=== PATIENT | female | born 1960 | race Two or more races ===

== ENCOUNTER 2019-10-04 08:41 | Emergency (ER) | payer MEDICARE, OTHER ==
[~2019-10-04] VITALS: Ht 162.6 cm; Wt 83.8 kg
[2019-10-04] MEDS ORDERED: SIMV20TA3 PO (09:31)
[2019-10-04] MEDS ORDERED: LEVO100T PO (09:31)
[2019-10-04] MEDS ORDERED: LOSA50TA14 PO (09:31)
--- NOTE | 2019-10-04 09:31 | NUR ---
MED REC COMPLETED.
[2019-10-04] MEDS ORDERED: LORazepam 2 MG/ML, 1ML IVPush ONE (10:00)
[2019-10-04] MEDS ORDERED: KETOROLAC 30 MG/1 ML IVPush ONE (10:00)
[2019-10-04] MEDS ORDERED: SODIUM CHLORIDE FLUSH 10ML SYR IVF ONE (10:00)
[2019-10-04 10:10] LABS: BASOPHILS # (AUTO) 0.02 x10^3/uL (0-0.1); BASOPHILS % (AUTO) 0 % (0-1); EOSINOPHILS # (AUTO) 0.05 x10^3/uL (0-0.4); EOSINOPHILS % (AUTO) 1 % (1-7); LYMPHOCYTES # (AUTO) 1.47 x10^3/uL (1-3.4); LYMPHOCYTES % (AUTO) 30 % (22-44); MD NO; MEAN CORPUSCULAR VOLUME 93.8 fL (80-100); MEAN PLATELET VOLUME 7.4 fL (7.4-10.4); MONOCYTES # (AUTO) 0.42 x10^3/uL (0.2-0.8); MONOCYTES % (AUTO) 9 % (2-9); NEUTROPHILS # (AUTO) 3.03 x10^3/uL (1.8-6.8); NEUTROPHILS % (AUTO) 61 % (42-75); PLATELET COUNT 264 x10^3/uL (130-400); RED BLOOD COUNT 4.71 x10^6/uL (3.82-5.3); RED CELL DISTRIBUTION WIDTH 14.2 % (9.6-15.2)
[2019-10-04 10:17] LABS: ALANINE AMINOTRANSFERASE 46 U/L (12-78); ALBUMIN 3.5 g/dL (3.4-5.0); ANION GAP 3 mmol/L (5-15); CALCIUM 8.6 mg/dL (8.5-10.1); CHLORIDE 111 mmol/L (98-107); CREATININE 0.62 mg/dL (0.55-1.02)
[2019-10-04 10:21] LABS: ALKALINE PHOSPHATASE 130 U/L (45-117); BILIRUBIN,TOTAL 0.4 mg/dL (0.2-1.0); TOTAL PROTEIN 7.2 g/dL (6.4-8.2); TROPONIN I < 0.015 ng/mL (0.000-0.045)
[2019-10-04] MEDS ORDERED: KETOROLAC 30 MG/1 ML ONE (10:23)
[2019-10-04] MEDS ORDERED: LORazepam 2 MG/ML, 1ML ONE (10:24)
--- NOTE | 2019-10-04 10:27 | NUR ---
PT MEDICATED PER MAR.
--- NOTE | 2019-10-04 10:43 | NUR ---
PT HERE WITH C/O BACK PAIN/SPASM. PT STATES SHE HAS BEEN EXPERIENCING BACK PAIN X 6 MONTHS AND RECENTLY IT GOT WORSE OVER PAST WEEK. PT STATES SHE WAS SEEN AT [place] IN FOR SAME THING. PT AAO X 4, ROOM AIR, CALL LIGHT WITHIN REACH, AT BEDSIDE. PT STATES LEFT SHOULDER PAIN THAT RADIATES TO FRONT OF LEFT CHEST AND ACROSS TO RIGHT BACK. PT CURRENTLY HAS "BIOFREEZE PATCH" IN PLACE.
--- NOTE | 2019-10-04 10:57 | NUR ---
CT WAITING FOR 20GA IV
--- NOTE | 2019-10-04 11:01 | NUR ---
NEW PIV ESTABLISHED BY THIS RN. CT NOTIFIED.
--- NOTE | 2019-10-04 11:08 | NUR ---
PT TO CT.
--- NOTE | 2019-10-04 11:25 | NUR ---
PT BACK FROM CT.
[2019-10-04] MEDS ORDERED: OMNIPAQUE 350 MG/ML, 100ML BOTTLE ONE (11:26)
[2019-10-04 11:54] VITALS: BP 159/87
--- NOTE | 2019-10-04 11:54 | NUR ---
ALL RESULTS BACK AT THIS TIME, CHART UP FOR RECHECK.
--- NOTE | 2019-10-04 13:05 | NUR ---
Patient/Caregiver given discharge instructions and they have confirmed that they understand the instructions. Patient ambulatory with steady gait. PIV REMOVED TIP INTACT.
== END 2019-10-04 13:13 | disposition home or self-care (01) ==
LOC: ED 11:05
DX: M54.6 Pain in thoracic spine (principal); I10 Essential (primary) hypertension; G89.29 Other chronic pain; Z88.8 Allergy status to other drugs, medicaments and biological substances
CPT/HCPCS: 36415; 71046; 71275; 80053; 83880; 84484; 85025; 85379; 93005; 96374; 96375; 99284; J1885; J2060; Q9967

== ENCOUNTER 2019-10-14 04:45 | Emergency (ER) | payer OTHER ==
[~2019-10-14] VITALS: Ht 162.6 cm; Wt 83.6 kg
[~2019-10-14 04:45] MED LIST: LEVO100T PO; LOSA50TA14 PO; SIMV20TA3 PO
[2019-10-14 04:46] VITALS: BP 171/102
[2019-10-14] MEDS ORDERED: OXYcodone/APAP 5/325MG TABLET ONE (05:14)
--- NOTE | 2019-10-14 05:27 | NUR ---
RN to bedside as patient is brought back via wheelchair from triage. Patient assisted from wheelchair into [facility]. Patient then given privacy to change into hospital gown. Patient then requested wheelchair for transport to bathroom. Spouse at bedside requesting to transport patient. Patient back via wheelchair without event. Complains of general body aches, mostly left shoulder, left back and left neck. Physician to bedside, confirmed patient has followed up at multiple emergency rooms and medical care. Reports being unable to see primary provider due to being on a [employer] health plan and being unable to find a provider locally who accepts her insurance. Patient reports she has been found negative on most tests, and has had no relief with muscle relaxers, steroids, or nonsteroidal antiinflammatory medications. Provider informed patient that emergency room tests are unlikely to diagnose the patient. Agreeable to more terminal superintendent tests. RN returned to bedside with medications (see MAR) RN then palpated and performed range of motion on the arm. Patient had little pain with passive range of motion, but pressure on the trapezius, and rotator cuff muscles (infrapinatus, teres major, and minor) reproduced patient's pain. Informed provider. radio electronics technician to bedside. Xray complete. Phlebotomy at bedside. Awaiting radiology read of imaging and lab results.
[2019-10-14] MEDS ORDERED: OXYcodone/APAP 5/325MG TABLET PO ONE (05:30)
[2019-10-14 05:49] LABS: BASOPHILS # (AUTO) 0.03 x10^3/uL (0-0.1); BASOPHILS % (AUTO) 0 % (0-1); EOSINOPHILS # (AUTO) 0.08 x10^3/uL (0-0.4); EOSINOPHILS % (AUTO) 1 % (1-7); LYMPHOCYTES # (AUTO) 1.23 x10^3/uL (1-3.4); LYMPHOCYTES % (AUTO) 17 % (22-44); MD NO; MEAN CORPUSCULAR HEMOGLOBIN 31.4 pg (27.0-34.8); MEAN CORPUSCULAR HGB CONC 32.8 g/dL (32.4-35.8); MEAN CORPUSCULAR VOLUME 95.8 fL (80-100); MEAN PLATELET VOLUME 7.8 fL (7.4-10.4); MONOCYTES # (AUTO) 0.54 x10^3/uL (0.2-0.8); MONOCYTES % (AUTO) 8 % (2-9); NEUTROPHILS # (AUTO) 5.34 x10^3/uL (1.8-6.8); NEUTROPHILS % (AUTO) 74 % (42-75); PLATELET COUNT 262 x10^3/uL (130-400); RED BLOOD COUNT 4.41 x10^6/uL (3.82-5.3); RED CELL DISTRIBUTION WIDTH 14.1 % (9.6-15.2)
[2019-10-14 05:50] LABS: HCT (SEDRATE) 41.9 % (34.6-47.8)
[2019-10-14 06:01] LABS: ALANINE AMINOTRANSFERASE 43 U/L (12-78); ALBUMIN 3.5 g/dL (3.4-5.0); ANION GAP 2 mmol/L (5-15); CALCIUM 8.9 mg/dL (8.5-10.1); CHLORIDE 109 mmol/L (98-107); CREATININE 0.63 mg/dL (0.55-1.02)
[2019-10-14 06:05] LABS: ALKALINE PHOSPHATASE 124 U/L (45-117); BILIRUBIN,TOTAL 0.4 mg/dL (0.2-1.0); CREATINE KINASE, TOTAL 339 U/L (26-192); TOTAL PROTEIN 7.2 g/dL (6.4-8.2); TROPONIN I < 0.015 ng/mL (0.000-0.045)
[2019-10-14] MEDS ORDERED: DEXAMETHASONE 4 MG/ML, 1ML IM ONE (06:30)
[2019-10-14] MEDS ORDERED: DEXAMETHASONE 4 MG/ML, 5ML ONE (06:37)
== END 2019-10-14 06:54 | disposition home or self-care (01) ==
LOC: ED 05:54
DX: G89.29 Other chronic pain (principal); M25.552 Pain in left hip; M25.551 Pain in right hip; M25.512 Pain in left shoulder; M06.80 Other specified rheumatoid arthritis, unspecified site; M35.3 Polymyalgia rheumatica; I10 Essential (primary) hypertension
CPT/HCPCS: 36415; 71045; 80053; 82550; 83880; 84484; 85025; 85651; 86038; 86140; 86430; 93005; 96372; 99284; J1100

== ENCOUNTER 2019-10-27 00:08 | Emergency (ER) | payer OTHER ==
[2019-10-27] MEDS ORDERED: SODIUM CHLORIDE FLUSH 10ML SYR IVF ONE (00:30)
[2019-10-27] MEDS ORDERED: LORazepam 2 MG/ML, 1ML IVPush ONE (00:30)
[2019-10-27] MEDS ORDERED: NITROGLYCERIN OINT 2%, 1GM TP ONE ×2 (00:30→00:40)
[2019-10-27] MEDS ORDERED: MORPHINE SULFATE 4 MG/ML, 1ML IVPush PRN (00:30)
[2019-10-27] MEDS ORDERED: LABETALOL 5MG/ML, 20ML IVPush ONE (00:30)
[2019-10-27] MEDS ORDERED: LABETALOL 5MG/ML, 20ML ONE (00:40)
[2019-10-27] MEDS ORDERED: LORazepam 2 MG/ML, 1ML ONE (00:41)
[2019-10-27] MEDS ORDERED: MORPHINE SULFATE 4 MG/ML, 1ML ONE (00:41)
[2019-10-27 00:55] LABS: BASOPHILS # (AUTO) 0.02 x10^3/uL (0-0.1); BASOPHILS % (AUTO) 0 % (0-1); EOSINOPHILS # (AUTO) 0.12 x10^3/uL (0-0.4); EOSINOPHILS % (AUTO) 2 % (1-7); LYMPHOCYTES # (AUTO) 1.56 x10^3/uL (1-3.4); LYMPHOCYTES % (AUTO) 26 % (22-44); MD NO; MEAN CORPUSCULAR HEMOGLOBIN 31.6 pg (27.0-34.8); MEAN CORPUSCULAR HGB CONC 32.8 g/dL (32.4-35.8); MEAN CORPUSCULAR VOLUME 96.5 fL (80-100); MEAN PLATELET VOLUME 8.1 fL (7.4-10.4); MONOCYTES # (AUTO) 0.53 x10^3/uL (0.2-0.8); MONOCYTES % (AUTO) 9 % (2-9); NEUTROPHILS # (AUTO) 3.88 x10^3/uL (1.8-6.8); NEUTROPHILS % (AUTO) 64 % (42-75); PLATELET COUNT 285 x10^3/uL (130-400); RED BLOOD COUNT 4.51 x10^6/uL (3.82-5.3); RED CELL DISTRIBUTION WIDTH 14.3 % (9.6-15.2)
--- NOTE | 2019-10-27 00:55 | NUR ---
CT PENDING LAB/CREATINE
--- NOTE | 2019-10-27 01:00 | NUR ---
PT STATES l BACK PAIN, RADIATES TO ELBOW. ALSO ABD PAIN THAT "FEELS NUMB X COUPLE DAYS" ALSO HTN, TAKING RX S RELIEF. PIV ESBT. AWARE OF PLAN FOR CTA. MEDS PER JAN, STATES IMMEDIATE RELIEF FROM PAIN. FAMILY AT BS. WILL CTM.
[2019-10-27 01:02] LABS: ALANINE AMINOTRANSFERASE 39 U/L (12-78); ALBUMIN 3.6 g/dL (3.4-5.0); ANION GAP 6 mmol/L (5-15); CALCIUM 9.5 mg/dL (8.5-10.1); CHLORIDE 107 mmol/L (98-107)
[2019-10-27 01:06] LABS: ALKALINE PHOSPHATASE 136 U/L (45-117); TOTAL PROTEIN 7.3 g/dL (6.4-8.2); TROPONIN I < 0.015 ng/mL (0.000-0.045)
[2019-10-27 01:10] LABS: BILIRUBIN,TOTAL 0.4 mg/dL (0.2-1.0)
--- NOTE | 2019-10-27 01:28 | NUR ---
ABLE TO CONTROL HTN C OTHER RX, HELD LABETALOL. AWARE, AGREES C PLAN. PENDING CT. FAMILY AT BS. WILL CTM.
[2019-10-27] MEDS ORDERED: OMNIPAQUE 350 MG/ML, 100ML BOTTLE ONE (01:56)
--- NOTE | 2019-10-27 02:21 | NUR ---
PT C/O BACK PAIN. REPOSTIONED IN BED. DENIES ANY OTHER NEEDS. AWARE OF PENDING CT RESUTLS.
[2019-10-27 02:36] VITALS: BP 152/98
--- NOTE | 2019-10-27 02:40 | NUR ---
CT SCAN RESULTED. CHART UP FOR MD TO RE-EVAL.
--- NOTE | 2019-10-27 02:48 | NUR ---
ERP AT BEDSIDE FOR RE-EVALUATION.
--- NOTE | 2019-10-27 02:59 | NUR ---
PATIENT DISCHARGED WITH INSTRUCTION. VERBALIZED UNDERSTANDING.
== END 2019-10-27 03:02 | disposition home or self-care (01) ==
LOC: ED 01:32
DX: S29.012A Strain of muscle and tendon of back wall of thorax, initial encounter (principal); R07.2 Precordial pain; I10 Essential (primary) hypertension; X58.XXXA Exposure to other specified factors, initial encounter; Y93.89 Activity, other specified; Y92.89 Other specified places as the place of occurrence of the external cause; Y99.8 Other external cause status
CPT/HCPCS: 36415; 71275; 74175; 80053; 83880; 84484; 85025; 93005; 96374; 96375; 99284; J2060; J2270; Q9967